=== PATIENT | female | born 1990 | race Caucasian/White ===

== ENCOUNTER 2017-10-22 19:10 | Emergency (ER) | payer MEDICAID, OTHER ==
[~2017-10-22] VITALS: Ht 170.2 cm; Wt 103.4 kg
[2017-10-22 19:40] VITALS: BP 138/81
--- NOTE | 2017-10-22 19:50 | Emergency Room Report ---
History of Present Illness General Chief Complaint: Vaginal Source: Patient Present Illness HPI 27-year-old female who also brought child in for evaluation for head trauma complaining of about a week of foul-smelling white vaginal discharge, associated with "fishy odor". Concern for BV Sexual active with one partner History of STDs call along time ago". Denies dysuria, polyuria, abdominal pain, nausea, vomiting, fever chills just had control ring placed recently Scheduled to have it removed tomorrow Allergies: Coded Allergies: CEPHALOSPORINS (Verified Allergy, Unknown, 10/22/17) PENICILLINS (Verified Allergy, Unknown, 10/22/17) Patient History Past Medical History: none Past Surgical History: none Pertinent Family History: none Social History: Denies: smoking, alcohol use, drug use Last Menstrual Period: sep 22 Now: No : 4 Immunizations: UTD Reviewed Nursing Documentation: PMH: Agreed, PSxH: Agreed Nursing Documentation-PMH Past Medical History: No Stated History Review of Systems All Other Systems: negative except mentioned in HPI Physical Exam Vital Signs Date Time Temp Pulse Resp B/P (MAP) Pulse Ox O2 Delivery O2 Flow Rate FiO2 10/22/17 19:23 98.4 75 18 138/81 98 Room Air Sp02 EP Interpretation: reviewed, normal General Appearance: normal inspection, well appearing, no apparent distress, alert, GCS 15, non-toxic, obese Head: normocephalic, atraumatic Eyes: bilateral eye PERRL, bilateral eye EOMI ENT: normal ENT inspection, hearing grossly normal, normal voice Neck: normal inspection, full range of motion, supple, no bony tend Respiratory: normal inspection, lungs clear, normal breath sounds, no respiratory distress, no retraction, no wheezing Cardiovascular #1: regular rate, rhythm, no edema Gastrointestinal: normal inspection, normal bowel sounds, non tender, soft, no guarding, no hernia Genitourinary: no CVA tenderness Musculoskeletal: normal inspection, back normal, normal range of motion, Nancy' s Sign negative Neurologic: normal inspection, alert, oriented x3, responsive, 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 Disposition: Patient is to be discharged to home. Prescriptions given are flagyl Patient is instructed to follow up with their primary care doctor within 5 days. Strict return precautions discussed with patient such as fever, chills, worsening/severe pain, nausea, vomiting, which may indicate severe illness. Patient verbalizes understanding and agrees with plan. Please note that this Emergency Department Report was dictated using [employer] glass [employer] technology software, occasionally this can lead to erroneous entry secondary to interpretation by the dictation equipment Last Vital Signs Date Time Temp Pulse Resp B/P (MAP) Pulse Ox O2 Delivery O2 Flow Rate FiO2 10/22/17 19:23 98.4 75 18 138/81 98 Room Air Status: improved Disposition: HOME, SELF-CARE Scripts Metronidazole* (FLAGYL*) 500 Mg Tablet 500 MG ORAL BID for 7 Days, #14 TAB Prov: MLAAIKA DUNN M.D. 10/22/17 MALAIKA DUNN M.D. Oct 22, 2017 19:50
[2017-10-22] MEDS ORDERED: METRONIDAZOLE500 MG ORAL (20:30)
[2017-10-22 20:43] LABS: APPEARANCE,URINE CLEAR; KETONES,URINE NEGATIVE (NEGATIVE); LEUKOCYTE ESTERASE ,URINE 2+ (NEGATIVE); NITRITE,URINE NEGATIVE (NEGATIVE); PH,URINE 6.5 (4.5-8.0); PROTEIN,URINE NEGATIVE (NEGATIVE); UROBILINOGEN,URINE NORMAL MG/DL (0.0-1.0)
[2017-10-22 20:49] LABS: BACTERIA,URINE FEW /HPF; RBC,URINE 0-2 /HPF (0 - 2); SQUAMOUS EPITHELIAL CELL,UR FEW /LPF (NONE/OCC)
[2017-10-22 22:00] VITALS: BP 141/96
== END 2017-10-22 22:00 | disposition home or self-care (01) ==
LOC: EMR 20:00
DX: N89.8 Other specified noninflammatory disorders of vagina (principal); Z88.0 Allergy status to penicillin
CPT/HCPCS: 81003; 81025; 99283